=== PATIENT | male | born 1950 | race Two or more races ===

== ENCOUNTER 2017-07-10 13:52 | Outpatient (CLI) | payer MEDICARE, OTHER ==
[~2017-07-10 13:52] MED LIST: AMLO10TA2 PO; ASPI-1152 PO; ATEN50TA PO; ATOR80TA PO; CLON0.1T PO; DULA0.75 SQ; EMPA25TA PO; FAMO20TA8 PO; LOSA1TAB42 PO; PRAS10TA5 PO
== END 2017-07-10 23:59 | disposition home or self-care (01) ==
LOC: RAD 13:52
PROVIDERS: ATTEND Surgery
DX: Z01.818 Encounter for other preprocedural examination (principal); J98.4 Other disorders of lung; M47.894 Other spondylosis, thoracic region; M19.019 Primary osteoarthritis, unspecified shoulder
CPT/HCPCS: 71046

== ENCOUNTER 2017-07-14 05:11 | Day surgery (SDC) | payer MEDICARE, OTHER ==
[~2017-07-14] VITALS: Ht 172.7 cm; Wt 100.2 kg
[2017-07-14] MEDS ORDERED: LOSA100T3 PO (06:37)
[2017-07-14] MEDS ORDERED: TAMS-12 PO (06:37)
[2017-07-14] MEDS ORDERED: ICOS1CAP PO (06:37)
[2017-07-14] MEDS ORDERED: EMPA10TA PO (06:37)
[2017-07-14] MEDS ORDERED: ATEN50TA PO (06:37)
[2017-07-14] MEDS ORDERED: IBUP800T54 PO (06:37)
[2017-07-14] MEDS ORDERED: ATOR80TA PO (06:37)
[2017-07-14] MEDS ORDERED: OXYB5TAB29 PO (06:37)
[2017-07-14] MEDS ORDERED: ASPI-1152 PO (06:37)
[2017-07-14] MEDS ORDERED: AMLO10TA4 PO (06:37)
[2017-07-14] MEDS ORDERED: METF10002 PO (06:37)
--- NOTE | 2017-07-14 06:44 | NUR ---
MS RN CLOSING NOTES RECEIVE PT FROM HOME PT AMBULATORY AT 0530 PT ADMITTED TO [facility] FLOOR FOR EGD AND COLONOSCOPY. PT A/O X 3, PER PT HE'S BEEN NPO SINCE MIDNIGHT. PT IN STABLE, NOT IN DISTRESS. VSS. TOLERATING ROOM AIR 98% NO SOB, KEPT CLEAN AND DRY AND COMFORTABLE. NEEDS ATTENDED AND ANTICIPATED. NURSING CARE RENDERED, CONSENTS SIGNED FOR PRE-OP PROCEDURE TODAY. HEAD TO TOE ASSESSMENT IS DONE. SKIN IS INTACT. ON LOW BED TO ENSURE SAFETY, CALL LIGHT WITHIN REACH, WILL ENDORSE TO THE NEXT SHIFT CONTINUE PLAN OF CARE.
--- NOTE | 2017-07-14 06:57 | NUR ---
PAGED DR. MATT SPOKE TO HIM CLARIFIED ORDERS GIVE LR KVO IV ONE TIME NOTED AND CARRIED OUT READ BACK AND VERIFIED ORDERS
[2017-07-14] MEDS ORDERED: IV LR 1000 ML 1,000 ML IV ONE ×2 (07:00→07:30)
--- NOTE | 2017-07-14 07:15 | NUR ---
RN Initial Notes Patient brought in to OR for EGD and Colonoscopy.
[2017-07-14] MEDS ORDERED: ANESTHESIA TRAY IN PYXIS 1 EA TRAY MC ONE (07:29)
[2017-07-14 08:00] VITALS: BP 128/68
--- NOTE | 2017-07-14 08:40 | NUR ---
RN NOTES PATIENT CAME BACK FROM OR, RECEIVED ORDERS FROM DR. MATT. VITALS STABLE, PATIENT SEEN BY DR. MATT, GAVE PRESCRIPTION AND STATED PATIENT CAN BE DISCHARGED.
[2017-07-14] MEDS ORDERED: SUVO10TA PO (08:48)
[2017-07-14] MEDS ORDERED: DEXL60CA3 PO (08:48)
[2017-07-14] MEDS ORDERED: CLON0.5T4 PO (08:48)
[2017-07-14] MEDS ORDERED: LINA145C PO (08:48)
[2017-07-14] MEDS ORDERED: VENL150T PO (08:48)
--- NOTE | 2017-07-14 09:24 | NUR ---
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 PATIENT LEFT THE FACILITY, AMBULATES INDEPENDENTLY, IN STABLE CONDITION. ACCOMPANIED BY FAMILY.
== END 2017-07-14 16:00 | disposition home or self-care (01) ==
LOC: DS 05:11 → UNDOADMIN 05:16 → MEDSG2 05:16 → UNDODISIN 09:24 → DS 16:00
PROVIDERS: ATTEND Surgery
DX: K29.00 Acute gastritis without bleeding (principal); K44.9 Diaphragmatic hernia without obstruction or gangrene; K21.0 Gastro-esophageal reflux disease with esophagitis; E11.9 Type 2 diabetes mellitus without complications; K59.00 Constipation, unspecified; E66.9 Obesity, unspecified; I25.10 Atherosclerotic heart disease of native coronary artery without angina pectoris; I25.2 Old myocardial infarction; M53.9 Dorsopathy, unspecified
CPT/HCPCS: 82962-TC; 87081-TC; 88305-TC; 88313-TC; 88342; J2704; J3490; J7120; Z7610